=== PATIENT | female | born 1930 | race Caucasian/White ===

== ENCOUNTER → 2016-12-28 | Outpatient (CLI) | payer MEDICARE, OTHER ==
[2015-06-14 11:02] VITALS: BP 134/64
[~2016-12-28] MED LIST: ACET325T9 PO; AMLO5TAB2 PO; AMLO5TAB4 PO; ASPI-612 PO; ATOR20TA PO; CARV6.25 PO; FURO-68 PO; MENT5.8L4 MT; MULT1TAB6 PO; NAFT40GE TP; NEOM1OIN TP; OMEG1CAP6 PO; OXYM30SP73 NS; POTA20TA12 PO; TETR15DR24 OU; TRIA15CR50 TP; VALS320T2 PO; VIT236LO TP; WARF-78 PO; WARF4TAB7 PO; [UNRECOGNIZED DRUG - CODE] TP
[2016-12-28 11:22] LABS: BASO % 0 % (0-3); EOS # 0.3 x10^3/uL (0.0-0.7); EOS % 4 % (0-3); HEMATOCRIT 38.9 % (36.0-47.0); HEMOGLOBIN 12.8 g/dL (12.0-15.5); LYMPH # 1.5 x10^3/uL (1.0-4.8); LYMPH % 17 % (24-48); MEAN CORPUSCULAR HEMOGLOBIN 30 pg (25-35); MEAN CORPUSCULAR HGB CONC 33 g/dL (31-37); MEAN CORPUSCULAR VOLUME 91 fL (79-100); MONO # 1.3 x10^3/uL (0.0-1.1); MONO % 15 % (0-9); NEUT # 5.4 x10^3uL (1.8-7.7); NEUT % 63 % (31-73); PLATELET COUNT 229 x10^3/uL (140-400); RED BLOOD COUNT 4.26 x10^6/uL (3.50-5.40); RED CELL DISTRIBUTION WIDTH 14.8 % (11.5-14.5); WHITE BLOOD COUNT 8.5 x10^3/uL (4.0-11.0)
== END | disposition home or self-care (01) ==
LOC: SPEC 10:41
PROVIDERS: ATTEND Specialist
DX: I10 Essential (primary) hypertension (principal); I82.91 Chronic embolism and thrombosis of unspecified vein; E87.0 Hyperosmolality and hypernatremia; R52 Pain, unspecified
CPT/HCPCS: 36415; 82607; 84443; 84550; 85027; 85610

== ENCOUNTER → 2016-12-30 | Outpatient (CLI) | payer MEDICARE, OTHER ==
[2015-06-14 11:02] VITALS: BP 134/64
[2016-12-30 14:30] LABS: BACTERIA,URINE FEW /HPF (0-FEW); BILIRUBIN,URINE NEG (NEG); CLARITY,URINE CLEAR; COLOR,URINE YELLOW; GLUCOSE,URINE NEG (NEG); NITRITE,URINE NEG (NEG); RBC,URINE 0 /HPF (0-2); SQUAMOUS EPITHELIAL CELL,UR OCC /LPF; UROBILINOGEN,URINE 0.2 mg/dL (0.2 mg/dL); WBC,URINE RARE /HPF (0-4)
[2016-12-30 14:31] LABS: HYALINE CASTS, URINE OCC /HPF; WAXY CASTS,URINE OCC /HPF
== END | disposition home or self-care (01) ==
LOC: SPEC 14:24
PROVIDERS: ATTEND Specialist
DX: Z00.00 Encounter for general adult medical examination without abnormal findings (principal)
CPT/HCPCS: 81001

== ENCOUNTER → 2017-01-06 | Outpatient (CLI) | payer MEDICARE, OTHER ==
[2015-06-14 11:02] VITALS: BP 134/64
--- NOTE | 2017-01-06 17:10 | RAD ---
Three-view left and radiograph 01/06/2017 Clinical history: Left hand pain. PA, lateral and oblique digital radiographs of the left hand were obtained. There is diffuse osteopenia the visualized bony structures. Mild degenerative changes are seen throughout the interphalangeal joints of the left hand. Mild to moderate degenerative changes are seen involving the interphalangeal, MCP and tarsal metatarsal joint on the left thumb. Mild degenerative changes are seen involving the mid carpal and radiocarpal joint. No fracture or dislocation is seen. Impression: Degenerative changes are seen involving the left hand as outlined above. No acute osseous abnormality is seen.
== END | disposition home or self-care (01) ==
LOC: RAD 16:40
PROVIDERS: ATTEND Nurse Practitioner Family
DX: M19.042 Primary osteoarthritis, left hand (principal); M85.80 Other specified disorders of bone density and structure, unspecified site
CPT/HCPCS: 73130

== ENCOUNTER → 2017-01-12 | Outpatient (CLI) | payer MEDICARE, OTHER ==
[2015-06-14 11:02] VITALS: BP 134/64
--- NOTE | 2017-01-12 11:27 | RAD ---
Indication change in mental status. Noncontrast imaging of the head was performed and is compared to a study 05/10/2015. The calvarium appears unremarkable. There is some debris in the left maxillary sinus. Clinical correlation as to the likelihood of sinusitis advised. The remainder of the visualized paranasal sinuses are unremarkable. There is underlying atrophy. There is increased lucency in the deep white matter compatible with microvascular disease. There is no subdural or epidural hematoma. No mass or midline shift is seen. There is no hemorrhage and no acute intracranial finding is seen. IMPRESSION: Chronic changes. No acute finding seen intracranially. PQRS Compliance Statement: One or more of the following individualized dose reduction techniques were utilized for this examination: 1. Automated exposure control 2. Adjustment of the mA and/or kV according to patient size 3. Use of iterative reconstruction technique
--- NOTE | 2017-01-12 11:32 | RAD ---
Indication cough. PA and lateral views of the chest were obtained and are compared to an examination 11/02/2015. Heart size is slightly enlarged but unchanged. Bipolar cardiac pacing device is noted. There is no congestive heart failure. There is slightly increased density at the left lung base likely reflecting obliquity of the patient and overlying soft tissues. A definite consolidated pneumonia in either lung is not seen. Significant pleural fluid is not present and there is no pneumothorax. IMPRESSION: No focal infiltrate or definite acute finding seen in the chest
== END | disposition home or self-care (01) ==
LOC: CT 10:41
PROVIDERS: ATTEND Specialist
DX: R41.82 Altered mental status, unspecified (principal); R05 Cough
CPT/HCPCS: 70450; 71020

== ENCOUNTER → 2017-01-20 | Outpatient (CLI) | payer MEDICARE, OTHER ==
[2015-06-14 11:02] VITALS: BP 134/64
== END | disposition home or self-care (01) ==
LOC: SPEC 10:00
PROVIDERS: ATTEND Specialist
DX: I82.91 Chronic embolism and thrombosis of unspecified vein (principal)
CPT/HCPCS: 36415; 85610; 85651; 86140

== ENCOUNTER → 2017-01-27 | Outpatient (CLI) | payer MEDICARE, OTHER ==
[2015-06-14 11:02] VITALS: BP 134/64
== END | disposition home or self-care (01) ==
LOC: SPEC 10:28
PROVIDERS: ATTEND Nurse Practitioner Family
DX: I10 Essential (primary) hypertension (principal); E78.00 Pure hypercholesterolemia, unspecified; M10.9 Gout, unspecified; F03.90 Unspecified dementia, unspecified severity, without behavioral disturbance, psychotic disturbance, mood disturbance, and anxiety; R53.1 Weakness; Z95.0 Presence of cardiac pacemaker
CPT/HCPCS: 36415; 85610

== ENCOUNTER → 2017-02-03 | Outpatient (CLI) | payer MEDICARE, OTHER ==
[2015-06-14 11:02] VITALS: BP 134/64
== END | disposition home or self-care (01) ==
LOC: SPEC 12:13
PROVIDERS: ATTEND Specialist
DX: Z00.00 Encounter for general adult medical examination without abnormal findings (principal); Z95.0 Presence of cardiac pacemaker
CPT/HCPCS: 36415; 85610

== ENCOUNTER → 2017-02-10 | Outpatient (CLI) | payer MEDICARE, OTHER ==
[2015-06-14 11:02] VITALS: BP 134/64
[2017-02-11 01:07] LABS: HEMOGLOBIN A1C 6.2 % (4.8-5.6)
== END | disposition home or self-care (01) ==
LOC: SPEC 07:47
PROVIDERS: ATTEND Specialist
DX: I10 Essential (primary) hypertension (principal); E78.00 Pure hypercholesterolemia, unspecified
CPT/HCPCS: 36415; 80061; 83036

== ENCOUNTER → 2017-02-12 | Outpatient (CLI) | payer MEDICARE, OTHER ==
[2015-06-14 11:02] VITALS: BP 134/64
[2017-02-12 12:55] LABS: CALCIUM 8.7 mg/dL (8.5-10.1); CREATININE 1.3 mg/dL (0.6-1.0); GFR 38.7; POTASSIUM 4.3 mmol/L (3.5-5.1)
== END | disposition home or self-care (01) ==
LOC: SPEC 12:03
PROVIDERS: ATTEND Internal Medicine Cardiovascular Disease
DX: I10 Essential (primary) hypertension (principal); Z95.0 Presence of cardiac pacemaker
CPT/HCPCS: 36415; 80048; 83880

== ENCOUNTER → 2017-02-19 | Outpatient (CLI) | payer MEDICARE, OTHER ==
[2015-06-14 11:02] VITALS: BP 134/64
[2017-02-19 06:00] LABS: ALBUMIN/GLOBULIN RATIO 0.8 (1.0-1.7); C REACTIVE PROTEIN 7.7 mg/L (0-3.3); CALCIUM 8.7 mg/dL (8.5-10.1); CREATININE 1.4 mg/dL (0.6-1.0); GFR 35.5; TOTAL BILIRUBIN 0.5 mg/dL (0.2-1.0); TOTAL PROTEIN 6.6 g/dL (6.4-8.2); URIC ACID 14.4 mg/dL (2.6-6.0)
[2017-02-19 06:03] LABS: BASO # 0.1 x10^3/uL (0.0-0.2); BASO % 1 % (0-3); EOS # 0.1 x10^3/uL (0.0-0.7); EOS % 1 % (0-3); HEMATOCRIT 39.4 % (36.0-47.0); LYMPH # 1.2 x10^3/uL (1.0-4.8); LYMPH % 9 % (24-48); MEAN CORPUSCULAR HEMOGLOBIN 30 pg (25-35); MEAN CORPUSCULAR HGB CONC 33 g/dL (31-37); MEAN CORPUSCULAR VOLUME 91 fL (79-100); MONO % 8 % (0-9); NEUT # 10.3 x10^3uL (1.8-7.7); NEUT % 82 % (31-73); PLATELET COUNT 219 x10^3/uL (140-400); RED BLOOD COUNT 4.34 x10^6/uL (3.50-5.40); RED CELL DISTRIBUTION WIDTH 15.6 % (11.5-14.5); WHITE BLOOD COUNT 12.6 x10^3/uL (4.0-11.0)
[2017-02-19 06:59] LABS: SEDIMENTATION RATE 8 (0-25)
== END | disposition home or self-care (01) ==
LOC: SPEC 04:50
PROVIDERS: ATTEND Specialist
DX: Z00.01 Encounter for general adult medical examination with abnormal findings (principal); I10 Essential (primary) hypertension; E78.00 Pure hypercholesterolemia, unspecified; M35.3 Polymyalgia rheumatica
CPT/HCPCS: 36415; 80053; 80061; 84550; 85027; 85651; 86140

== ENCOUNTER → 2017-02-22 | Outpatient (CLI) | payer MEDICARE, OTHER ==
[2015-06-14 11:02] VITALS: BP 134/64
== END | disposition home or self-care (01) ==
LOC: SPEC 14:19
PROVIDERS: ATTEND Specialist
DX: I48.91 Unspecified atrial fibrillation (principal)
CPT/HCPCS: 36415; 85610

== ENCOUNTER → 2017-03-09 | Outpatient (CLI) | payer MEDICARE, OTHER ==
[2015-06-14 11:02] VITALS: BP 134/64
[2017-03-09 11:10] LABS: BACTERIA,URINE MANY /HPF (0-FEW); BILIRUBIN,URINE NEG (NEG); CLARITY,URINE CLOUDY; COLOR,URINE YELLOW; GLUCOSE,URINE NEG (NEG); NITRITE,URINE POS (NEG); SQUAMOUS EPITHELIAL CELL,UR MOD /LPF; UROBILINOGEN,URINE 1 mg/dL (0.2 mg/dL); WBC,URINE >40 /HPF (0-4)
[2017-03-09 11:11] LABS: HYALINE CASTS, URINE FEW /HPF
== END | disposition home or self-care (01) ==
LOC: SPEC 10:52
PROVIDERS: ATTEND Specialist
DX: R35.0 Frequency of micturition (principal)
CPT/HCPCS: 81001; 87086

== ENCOUNTER → 2017-03-11 | Outpatient (CLI) | payer MEDICARE, OTHER ==
[2015-06-14 11:02] VITALS: BP 134/64
== END | disposition home or self-care (01) ==
LOC: SPEC 11:38
PROVIDERS: ATTEND Specialist
DX: I11.0 Hypertensive heart disease with heart failure (principal); I50.9 Heart failure, unspecified; I82.91 Chronic embolism and thrombosis of unspecified vein
CPT/HCPCS: 36415; 85018; 85610

== ENCOUNTER → 2017-03-12 | Outpatient (CLI) | payer MEDICARE, OTHER ==
[2015-06-14 11:02] VITALS: BP 134/64
== END | disposition home or self-care (01) ==
LOC: SPEC 11:44
PROVIDERS: ATTEND Specialist
DX: I10 Essential (primary) hypertension (principal); Z95.811 Presence of heart assist device
CPT/HCPCS: 36415; 85018; 85610

== ENCOUNTER → 2017-03-13 | Outpatient (CLI) | payer MEDICARE, OTHER ==
[2015-06-14 11:02] VITALS: BP 134/64
== END | disposition home or self-care (01) ==
LOC: SPEC 10:28
PROVIDERS: ATTEND Specialist
DX: I82.91 Chronic embolism and thrombosis of unspecified vein (principal); I10 Essential (primary) hypertension; I73.9 Peripheral vascular disease, unspecified
CPT/HCPCS: 36415; 85018; 85610

== ENCOUNTER → 2017-03-22 | Outpatient (CLI) | payer MEDICARE, OTHER ==
[2015-06-14 11:02] VITALS: BP 134/64
[2017-03-22 14:18] LABS: C REACTIVE PROTEIN 2.3 mg/L (0-3.3); URIC ACID 7.2 mg/dL (2.6-6.0)
== END | disposition home or self-care (01) ==
LOC: SPEC 13:39
PROVIDERS: ATTEND Specialist
DX: Z00.01 Encounter for general adult medical examination with abnormal findings (principal); M35.3 Polymyalgia rheumatica; E78.00 Pure hypercholesterolemia, unspecified; I10 Essential (primary) hypertension; Z79.899 Other long term (current) drug therapy
CPT/HCPCS: 36415; 84550; 85651; 86140

== ENCOUNTER → 2017-04-02 | Outpatient (CLI) | payer MEDICARE, OTHER ==
[2015-06-14 11:02] VITALS: BP 134/64
== END | disposition home or self-care (01) ==
LOC: SPEC 10:20
PROVIDERS: ATTEND Specialist
DX: Z51.81 Encounter for therapeutic drug level monitoring (principal); Z79.82 Long term (current) use of aspirin
CPT/HCPCS: 36415; 85610

== ENCOUNTER → 2017-04-13 | Outpatient (CLI) | payer MEDICARE, OTHER ==
[2015-06-14 11:02] VITALS: BP 134/64
[2017-04-13 13:36] LABS: CALCIUM 8.8 mg/dL (8.5-10.1); CREATININE 1.2 mg/dL (0.6-1.0); GFR 42.4; POTASSIUM 4.1 mmol/L (3.5-5.1)
== END | disposition home or self-care (01) ==
LOC: SPEC 12:50
PROVIDERS: ATTEND Specialist
DX: I11.0 Hypertensive heart disease with heart failure (principal); I50.9 Heart failure, unspecified
CPT/HCPCS: 36415; 80048

== ENCOUNTER → 2017-04-23 | Outpatient (CLI) | payer MEDICARE, OTHER ==
[2015-06-14 11:02] VITALS: BP 134/64
[2017-04-23 13:53] LABS: C REACTIVE PROTEIN 8.3 mg/L (0-3.3); URIC ACID 7.2 mg/dL (2.6-6.0)
== END | disposition home or self-care (01) ==
LOC: SPEC 13:15
PROVIDERS: ATTEND Specialist
DX: Z00.01 Encounter for general adult medical examination with abnormal findings (principal); M35.3 Polymyalgia rheumatica; I10 Essential (primary) hypertension; E78.00 Pure hypercholesterolemia, unspecified
CPT/HCPCS: 36415; 84550; 85651; 86140

== ENCOUNTER → 2017-05-03 | Outpatient (CLI) | payer MEDICARE, OTHER ==
[2015-06-14 11:02] VITALS: BP 134/64
[2017-05-03 15:06] LABS: BILIRUBIN,URINE NEG (NEG); CLARITY,URINE CLOUDY; COLOR,URINE YELLOW; GLUCOSE,URINE NEG (NEG)
[2017-05-03 15:07] LABS: BACTERIA,URINE MANY /HPF (0-FEW); HYALINE CASTS, URINE FEW /HPF; NITRITE,URINE POS (NEG); SQUAMOUS EPITHELIAL CELL,UR OCC /LPF; UROBILINOGEN,URINE 0.2 mg/dL (0.2 mg/dL); WBC,URINE 20-40 /HPF (0-4)
== END | disposition home or self-care (01) ==
LOC: SPEC 14:06
PROVIDERS: ATTEND Specialist
DX: N39.0 Urinary tract infection, site not specified (principal); R11.2 Nausea with vomiting, unspecified; K59.00 Constipation, unspecified; K30 Functional dyspepsia; R14.3 Flatulence; R05 Cough
CPT/HCPCS: 81001; 87086

== ENCOUNTER → 2017-05-24 | Outpatient (CLI) | payer MEDICARE, OTHER ==
[2015-06-14 11:02] VITALS: BP 134/64
[2017-05-24 09:28] LABS: C REACTIVE PROTEIN 5.6 mg/L (0-3.3); URIC ACID 6.6 mg/dL (2.6-6.0)
== END | disposition home or self-care (01) ==
LOC: SPEC 09:06
PROVIDERS: ATTEND Specialist
DX: Z00.01 Encounter for general adult medical examination with abnormal findings (principal); M53.3 Sacrococcygeal disorders, not elsewhere classified
CPT/HCPCS: 36415; 84550; 85610; 85651; 86140

== ENCOUNTER → 2017-06-22 | Outpatient (CLI) | payer MEDICARE, OTHER ==
[2015-06-14 11:02] VITALS: BP 134/64
[2017-06-22 12:04] LABS: C REACTIVE PROTEIN 21.3 mg/L (0-3.3); URIC ACID 6.9 mg/dL (2.6-6.0)
== END | disposition home or self-care (01) ==
LOC: SPEC 11:31
PROVIDERS: ATTEND Specialist
DX: Z00.01 Encounter for general adult medical examination with abnormal findings (principal); M35.3 Polymyalgia rheumatica
CPT/HCPCS: 36415; 84550; 85651; 86140

== ENCOUNTER → 2017-06-24 | Outpatient (CLI) | payer MEDICARE, OTHER ==
[2015-06-14 11:02] VITALS: BP 134/64
[2017-06-24 12:19] LABS: BILIRUBIN,URINE NEG (NEG); CLARITY,URINE HAZY; COLOR,URINE YELLOW; GLUCOSE,URINE NEG (NEG)
[2017-06-24 12:20] LABS: BACTERIA,URINE MOD /HPF (0-FEW); HYALINE CASTS, URINE FEW /HPF; NITRITE,URINE POS (NEG); RBC,URINE 0 /HPF (0-2); SQUAMOUS EPITHELIAL CELL,UR OCC /LPF; UROBILINOGEN,URINE 0.2 mg/dL (0.2 mg/dL)
== END | disposition home or self-care (01) ==
LOC: SPEC 11:57
PROVIDERS: ATTEND Specialist
DX: N39.0 Urinary tract infection, site not specified (principal)
CPT/HCPCS: 81001; 87086

== ENCOUNTER → 2017-07-22 | Outpatient (CLI) | payer MEDICARE, OTHER ==
[2015-06-14 11:02] VITALS: BP 134/64
[2017-07-22 10:46] LABS: C REACTIVE PROTEIN 3.9 mg/L (0-3.3)
[2017-07-23 01:07] LABS: HEMOGLOBIN A1C 6.1 % (4.8-5.6)
== END | disposition home or self-care (01) ==
LOC: SPEC 09:51
PROVIDERS: ATTEND Specialist
DX: Z00.01 Encounter for general adult medical examination with abnormal findings (principal); M35.3 Polymyalgia rheumatica; R79.89 Other specified abnormal findings of blood chemistry
CPT/HCPCS: 36415; 83036; 84550; 85651; 86140

== ENCOUNTER → 2017-08-22 | Outpatient (CLI) | payer MEDICARE, OTHER ==
[2015-06-14 11:02] VITALS: BP 134/64
[2017-08-22 14:45] LABS: C REACTIVE PROTEIN 6.6 mg/L (0-3.3); URIC ACID 6.3 mg/dL (2.6-6.0)
== END | disposition home or self-care (01) ==
LOC: SPEC 14:24
PROVIDERS: ATTEND Specialist
DX: M35.3 Polymyalgia rheumatica (principal); I11.0 Hypertensive heart disease with heart failure; I50.9 Heart failure, unspecified
CPT/HCPCS: 36415; 84550; 85651; 86140

== ENCOUNTER → 2017-09-03 | Outpatient (CLI) | payer MEDICARE, OTHER ==
[2015-06-14 11:02] VITALS: BP 134/64
[2017-09-03 17:31] LABS: BASO # 0.1 x10^3/uL (0.0-0.2); BASO % 1 % (0-3); EOS # 0.2 x10^3/uL (0.0-0.7); EOS % 2 % (0-3); HEMATOCRIT 39.2 % (36.0-47.0); HEMOGLOBIN 12.8 g/dL (12.0-15.5); LYMPH # 1.1 x10^3/uL (1.0-4.8); LYMPH % 11 % (24-48); MEAN CORPUSCULAR HEMOGLOBIN 31 pg (25-35); MEAN CORPUSCULAR HGB CONC 33 g/dL (31-37); MEAN CORPUSCULAR VOLUME 94 fL (79-100); MONO # 1.1 x10^3/uL (0.0-1.1); MONO % 11 % (0-9); NEUT # 7.5 x10^3uL (1.8-7.7); NEUT % 75 % (31-73); PLATELET COUNT 226 x10^3/uL (140-400); RED BLOOD COUNT 4.15 x10^6/uL (3.50-5.40)
== END | disposition home or self-care (01) ==
LOC: SPEC 15:24
PROVIDERS: ATTEND Specialist
DX: I11.0 Hypertensive heart disease with heart failure (principal); I50.9 Heart failure, unspecified; J44.9 Chronic obstructive pulmonary disease, unspecified; Z95.0 Presence of cardiac pacemaker
CPT/HCPCS: 36415; 85025; 85610

== ENCOUNTER → 2017-09-22 | Outpatient (CLI) | payer MEDICARE, OTHER ==
[2015-06-14 11:02] VITALS: BP 134/64
[2017-09-22 11:16] LABS: C REACTIVE PROTEIN 12.7 mg/L (0-3.3); URIC ACID 6.7 mg/dL (2.6-6.0)
== END | disposition home or self-care (01) ==
LOC: SPEC 10:35
PROVIDERS: ATTEND Specialist
DX: Z00.01 Encounter for general adult medical examination with abnormal findings (principal); M35.3 Polymyalgia rheumatica
CPT/HCPCS: 36415; 84550; 85651; 86140

== ENCOUNTER 2017-11-16 14:01 | Emergency (ER) | payer MEDICARE, OTHER ==
[~2017-11-16] VITALS: Ht 325.1 cm; Wt 85.0 kg
[2017-11-16] MEDS ORDERED: IV NORMAL SALINE 500ML 500 ML IV ONE (14:30)
[2017-11-16] MEDS ORDERED: PANTOPRAZOLE IV 40 MG VIAL. IVP ONE (15:00)
[2017-11-16 15:09] LABS: BILIRUBIN,URINE NEG (NEG); CLARITY,URINE TURBID; COLOR,URINE YELLOW; GLUCOSE,URINE NEG (NEG); NITRITE,URINE NEG (NEG); UROBILINOGEN,URINE 0.2 mg/dL (0.2 mg/dL)
[2017-11-16 15:10] LABS: BACTERIA,URINE FEW /HPF (0-FEW); WBC,URINE TNTC /HPF (0-4)
[2017-11-16 15:19] LABS: BASO # 0.1 x10^3/uL (0.0-0.2); BASO % 1 % (0-3); EOS # 0.1 x10^3/uL (0.0-0.7); EOS % 1 % (0-3); HEMOGLOBIN 12.6 g/dL (12.0-15.5); LYMPH # 1.2 x10^3/uL (1.0-4.8); LYMPH % 14 % (24-48); MEAN CORPUSCULAR HEMOGLOBIN 32 pg (25-35); MEAN CORPUSCULAR HGB CONC 33 g/dL (31-37); MEAN CORPUSCULAR VOLUME 96 fL (79-100); MONO # 1.5 x10^3/uL (0.0-1.1); MONO % 18 % (0-9); NEUT # 5.5 x10^3uL (1.8-7.7); NEUT % 66 % (31-73); PLATELET COUNT 203 x10^3/uL (140-400); RED BLOOD COUNT 3.97 x10^6/uL (3.50-5.40); RED CELL DISTRIBUTION WIDTH 17.7 % (11.5-14.5); WHITE BLOOD COUNT 8.3 x10^3/uL (4.0-11.0)
[2017-11-16] MEDS ORDERED: cefTRIAXone IV Push 1 GM VIAL. IVP ONE (15:30)
[2017-11-16 15:36] LABS: ALBUMIN 2.8 g/dL (3.4-5.0); CALCIUM 9.2 mg/dL (8.5-10.1); CREATININE 1.7 mg/dL (0.6-1.0); DIRECT BILIRUBIN 0.1 mg/dL (0.0-0.2); GFR 28.3; POTASSIUM 3.8 mmol/L (3.5-5.1); TOTAL BILIRUBIN 0.5 mg/dL (0.2-1.0); TOTAL PROTEIN 6.4 g/dL (6.4-8.2)
[2017-11-16 15:37] LABS: FECAL OB PT POSITIVE (NEG)
[2017-11-16] MEDS ORDERED: IV NORMAL SALINE 50ML 50 ML ONE (16:20)
[2017-11-16] MEDS ORDERED: PHYTONADIONE 10 MG/ML AMPUL. ONE (16:20)
[2017-11-16] MEDS ORDERED: PHYTONADIONE 10 MG in IV NORMAL SALINE 50ML 50 ML IV ONE (16:30)
--- NOTE | 2017-11-16 16:40 | EKG ---
[address] [address] Test Date: 2017-11-16 Test Time: 14:24:13 Pat Name: RICKI RODRIGEZ Department: Room: Gender: F [employer] Machine Operator: SHANDRA : [id number] Requested By: ANDREWS SILVA Order Number: [id number] Reading MD: Measurements Intervals [place] Rate: 87 P: -43 OK: 262 QRS: -38 QRSD: 160 T: 159 QT: 418 QTc: 510 Interpretive Statements SINUS RHYTHM VENTRICULAR PREMATURE COMPLEX(ES) ATRIAL PREMATURE COMPLEX(ES) PROLONGED OK INTERVAL ABNORMAL LEFT AXIS DEVIATION LOW LIMB LEAD VOLTAGE NON SPECIFIC INTRAVENTRICULAR BLOCK QRS(T) CONTOUR ABNORMALITY CONSISTENT WITH INFERIOR INFARCT PROBABLY OLD ABNORMAL ECG RI6.01 No previous ECG available for comparison
--- NOTE | 2017-11-16 16:41 | RAD ---
CHEST AP ONLY dated 11/16/2017 3:33 PM. Comparison: 08/14/2016 Clinical Indication: cough, hypoxia pt unable to follow directions. Findings: Single upright portable exam performed. Heart and mediastinal contours are stable. Dual lead left subclavian pacer in place, unchanged. Lung volumes are low, limiting evaluation. There is some hazy increased density at the left lung base, unchanged. Right lung remains clear. No pleural effusion or pneumothorax. Impression: No acute radiographic abnormality. Stable findings compared to 01/12/2017. Electronically signed by: Nico Dominguez MD (11/16/2017 4:38 PM) [id number]
--- NOTE | 2017-11-16 17:48 | PHYS DOC ---
Past History Past Medical History: A-Fib, CAD, CHF, DVT, High Cholesterol, Hypertension, TIA , Other Past Surgical History: Pacemaker, Other Alcohol Use: None Drug Use: None Adult General Chief Complaint Chief Complaint: BLOODY STOOL HPI HPI This is a pleasant 87-year-old female presenting to the emergency department with bright red blood in her stool. She was seen in clinic today and transferred here for further treatment and care. She has a history of A. fib high cholesterol and takes warfarin for her atrial fibrillation. She denies any chest pain shortness of breath lightheadedness or syncope. She denies any abdominal pain. This all started within the last 24 hours. Location GI tract. Duration intermittent. Review of systems is negative for abdominal pain nausea vomiting fevers chills. Positive for worsening associated shortness of breath. All other review of systems is negative unless otherwise noted in history of present illness. ED course: 87-year-old female presenting the emergency department today with bloody stools. On arrival afebrile mild hypertension heart rate in the mid 90s. Patient was 92% on room air placed on 2 L nasal cannula. EKG obtained and reviewed by myself shows no obvious P-wave. A few PVCs/possibly paced beats along with another complex that is more narrow. Irregular rhythm. Mild repolarization abnormality. Morphology not consistent with STEMI. Patient does not have chest pain. Blood work obtained. Hemoglobin is within normal limits. Pantoprazole IV push along with 500 mL of fluid given. INR is 2.7. We reversed the patient's INR with IV vitamin K and FFP. We do not have PCC here. Rectal exam shows gross red blood sent for confirmation. Positive fecal occult testing. Urinalysis suggestive of infection. Chemistry panel shows elevated BUN and creatinine. ProBNP also elevated. I discussed case with Dr. Pino GI specialist at [facility] who agrees with transfer for GI consultation. I also discussed the case with Dr. Phillips who accepted the patient for admission. We also notified the patient's primary care physician Dr. Junior who agrees that the patient would be better served at [facility] rather than here. The patient was then transferred for further treatment and care. Review of Systems Review of Systems SEE ABOVE. Current Medications Current Medications Current Medications Medications (Trade) Dose Ordered Sig/Kimberly Start Time Stop Time Status Last Admin Dose Admin Ceftriaxone Sodium 1 gm/ Sodium Chloride 50 ml @ 100 mls/hr 1X ONCE 11/16/17 15:30 11/16/17 15:30 DC Ceftriaxone Sodium (Rocephin) 1 gm 1X ONCE 11/16/17 15:30 11/16/17 15:31 DC 11/16/17 15:34 1 GM Pantoprazole Sodium (Protonix Vial) 40 mg 1X ONCE 11/16/17 15:00 11/16/17 15:01 DC 11/16/17 15:08 40 MG Phytonadione (Vitamin K) 10 mg STK-MED ONCE 11/16/17 16:20 11/16/17 16:21 DC Phytonadione 10 mg/Sodium Chloride 51 ml @ 102 mls/hr 1X ONCE 11/16/17 16:30 11/16/17 16:59 DC 11/16/17 16:26 102 MLS/HR Sodium Chloride 50 ml @ As Directed STK-MED ONCE 11/16/17 16:20 11/16/17 16:21 DC Allergies Allergies Allergies Coded Allergies Type Severity Reaction Last Updated Verified adhesive Allergy Intermediate rash 06/12/15 Yes alendronate sodium Allergy Intermediate 06/12/15 Yes hydrochlorothiazide Allergy Intermediate 06/12/15 Yes oxaprozin Allergy Intermediate 06/12/15 Yes pneumococcal vaccine Allergy Intermediate 02/12/15 Yes raloxifene Allergy Intermediate 02/12/15 Yes tramadol Allergy Intermediate 02/12/15 Yes atorvastatin Adverse Reaction Intermediate "ITCH SOMETIME" 05/10/15 Yes Physical Exam Physical Exam SEE ABOVE Constitutional: Well developed, well nourished, no acute distress, non-toxic appearance. HENT: Normocephalic, atraumatic, bilateral external ears normal, oropharynx moist, no oral exudates, nose normal. [] Eyes: PERRLA, EOMI, conjunctiva normal, no discharge. Neck: Normal range of motion, no tenderness, supple, no stridor. [] Cardiovascular:Heart rate regular rhythm, no murmur Lungs & Thorax: Bilateral breath sounds clear to auscultation [] Abdomen: Bowel sounds normal, soft, no tenderness, no masses, no pulsatile masses. [] Skin: Warm, dry, no erythema, no rash. Back: No tenderness, no CVA tenderness. [] Extremities: No tenderness, no cyanosis, no clubbing, ROM intact, no edema. [] Neurologic: Alert and oriented X 3, normal motor function, normal sensory function, no focal deficits noted. Psychologic: Affect normal, judgement normal, mood normal. [] Current Patient Data Vital Signs Vital Signs Date Time Temp Pulse Resp B/P (MAP) Pulse Ox O2 Delivery O2 Flow Rate FiO2 11/16/17 16:30 105 20 157/61 (93) 98 Nasal Cannula 2.0 11/16/17 14:24 98.3 Lab Results Laboratory Tests Test 11/16/17 14:49 11/16/17 15:00 Urine Collection Type U cath Urine Color Yellow Urine Clarity Turbid Urine pH 7.0 Urine Specific [place] 1.015 Urine Protein Trace (NEG-TRACE) Urine Glucose (UA) Neg mg/dL (NEG) Urine Ketones (Stick) Neg mg/dL (NEG) Urine Blood Small (NEG) Urine Nitrite Neg (NEG) Urine Bilirubin Neg (NEG) Urine Urobilinogen Dipstick 0.2 mg/dL (0.2 mg/dL) Urine Leukocyte Esterase Large (NEG) Urine RBC 3-5 /HPF (0-2) Urine WBC Tntc /HPF (0-4) Urine Squamous Epithelial Cells None /LPF Urine Bacteria Few /HPF (0-FEW) White Blood Count 8.3 x10^3/uL (4.0-11.0) Red Blood Count 3.97 x10^6/uL (3.50-5.40) Hemoglobin 12.6 g/dL (12.0-15.5) Hematocrit 38.0 % (36.0-47.0) Mean Corpuscular Volume 96 fL (79-100) Mean Corpuscular Hemoglobin 32 pg (25-35) Mean Corpuscular Hemoglobin Concent 33 g/dL (31-37) Red Cell Distribution Width 17.7 % (11.5-14.5) H Platelet Count 203 x10^3/uL (140-400) Neutrophils (%) (Auto) 66 % (31-73) Lymphocytes (%) (Auto) 14 % (24-48) L Monocytes (%) (Auto) 18 % (0-9) H Eosinophils (%) (Auto) 1 % (0-3) Basophils (%) (Auto) 1 % (0-3) Neutrophils # (Auto) 5.5 x10^3uL (1.8-7.7) Lymphocytes # (Auto) 1.2 x10^3/uL (1.0-4.8) Monocytes # (Auto) 1.5 x10^3/uL (0.0-1.1) H Eosinophils # (Auto) 0.1 x10^3/uL (0.0-0.7) Basophils # (Auto) 0.1 x10^3/uL (0.0-0.2) Prothrombin Time 27.4 SEC (9.4-11.4) H Prothrombin Time INR 2.7 (0.9-1.1) H PTT 35 SEC (23-33) H Stool Occult Blood Positive (NEG) Sodium Level 137 mmol/L (136-145) Potassium Level 3.8 mmol/L (3.5-5.1) Chloride Level 99 mmol/L (98-107) Carbon Dioxide Level 32 mmol/L (21-32) Anion Gap 6 (6-14) Blood Urea Nitrogen 36 mg/dL (7-20) H Creatinine 1.7 mg/dL (0.6-1.0) H Estimated GFR (Cockcroft-Gault) 28.3 Glucose Level 109 mg/dL (70-99) H Lactic Acid Level 1.1 mmol/L (0.4-2.0) Calcium Level 9.2 mg/dL (8.5-10.1) Total Bilirubin 0.5 mg/dL (0.2-1.0) Direct Bilirubin 0.1 mg/dL (0.0-0.2) Aspartate Amino Transferase (AST) 17 U/L (15-37) Alanine Aminotransferase (ALT) 21 U/L (14-59) Alkaline Phosphatase 96 U/L (46-116) ID-Rvt-C-Type Natriuretic Peptide 2113 pg/mL (0-449) H Total Protein 6.4 g/dL (6.4-8.2) Albumin 2.8 g/dL (3.4-5.0) L Lipase 75 U/L (73-393) EKG EKG [] Radiology/Procedures Radiology/Procedures [] Course & Med Decision Making Course & Med Decision Making Pertinent Labs and Imaging studies reviewed. (See chart for details) [] Dragon Disclaimer Dragon Disclaimer This electronic medical record was generated, in whole or in part, using a voice recognition dictation system. Departure Departure: Impression: Primary Impression: GI bleed Additional Impressions: Warfarin anticoagulation UTI (urinary tract infection) Disposition: 02 XFER [facility]-TRM HOSP ([facility]) Condition: STABLE Referrals: JADA BARRAZA MD (PCP) Critical Care Time Critical care time spent was 45 minutes exclusive of procedures. Time was spent evaluating the patient, ordering the administration of medications, reevaluating the patient, discussing with the admitting provider and documenting. Problem Qualifiers ANDREWS SILVA MD Nov 16, 2017 17:48
[2017-11-16 19:05] VITALS: BP 112/58
== END 2017-11-16 19:18 | disposition short-term general hospital (02) ==
LOC: ER 14:01
DX: K92.2 Gastrointestinal hemorrhage, unspecified (principal); Z79.01 Long term (current) use of anticoagulants; N39.0 Urinary tract infection, site not specified; I48.91 Unspecified atrial fibrillation; I25.10 Atherosclerotic heart disease of native coronary artery without angina pectoris; I11.0 Hypertensive heart disease with heart failure; I50.9 Heart failure, unspecified; E78.00 Pure hypercholesterolemia, unspecified; Z86.73 Personal history of transient ischemic attack (TIA), and cerebral infarction without residual deficits; Z95.0 Presence of cardiac pacemaker; Z88.8 Allergy status to other drugs, medicaments and biological substances; Z88.6 Allergy status to analgesic agent; Z88.7 Allergy status to serum and vaccine
CPT/HCPCS: 36415; 51702; 71045; 80048; 80076; 81001; 82274; 83605; 83690; 83880; 85025; 85610; 85730; 87086; 93005; 96361; 96365; 96375; 99291; C9113; J0696; J3430; J7040